=== PATIENT | female | born 1940 | race Caucasian/White ===

== ENCOUNTER 2022-03-09 12:56 | Inpatient (IN) | payer MEDICARE, SELFPAY ==
[2022-03-09] VITALS (9 sets, daily range): BP systolic 153–195; BP diastolic 71–88; PULSE 78–92; RESP 16–18; TEMP 36.6; O2SAT 93–97; BMI 29.1; BMI 31.1
--- NOTE | 2022-03-09 | CRLHL7_ITS ---
For Patients: As a result of the 21st Century Cures Act, medical imaging exams and procedure reports are released immediately into your electronic medical record. You may view this report before your referring provider. If you have questions, please contact your health care provider. INDICATION: Right facial weakness. TECHNIQUE: MRI brain: Multiplanar multisequence MR imaging acquired prior to and following intravenous contrast. MRA head: Kegi-pz-nnsbnh imaging acquired. MRA neck: Pgio-mc-osdsnq and postcontrast imaging acquired. COMPARISON: None. FINDINGS: MRI brain: Small focus of diffusion restriction and mild T2 FLAIR hyperintensity within the ventral left hemipons, compatible with acute to early subacute infarction. Mild diffuse cerebral volume loss. No mass effect or midline shift. Patchy T2 FLAIR hyperintensities in the supratentorial white matter and aubrie, typical for moderate chronic microvascular ischemic changes. No pathologic intracranial enhancement. No recent intracranial hemorrhage or pathologic extra-axial fluid collection. The major arterial flow voids of the skullbase are preserved. Thinning of the ocular lenses. Mild paranasal sinus mucosal thickening. Trace mastoid effusions. MRA head: Artifact degrades image quality. The visualized internal carotid, middle cerebral, and anterior cerebral arteries are patent. Suggested stenosis of the right greater than left supraclinoid internal carotid arteries. The vertebral, basilar, and posterior cerebral arteries are patent. Suggested stenosis of the right greater than left posterior cerebral artery proximal P2 segments. No intracranial aneurysm or vascular malformation. MRA neck: The brachiocephalic trunk and subclavian arteries are widely patent. The common carotid arteries are widely patent. Mild (less than 50 percent) proximal cervical internal carotid artery stenoses. The left vertebral artery is dominant. The vertebral arteries are widely patent. IMPRESSION: MRI brain: 1. Small acute to early subacute infarction within the ventral left hemipons. 2. Moderate chronic microvascular changes. 3. Mild diffuse cerebral volume loss. MRA head/neck: 1. MRA head degraded by artifact. Suggested stenosis of the right greater than left supraclinoid internal carotid arteries and posterior cerebral artery proximal P2 segments. 2. Mild (less than 50 percent) proximal cervical internal carotid artery stenoses. Dictated by El Canseco MD @ 03/09/2022 6:09:42 PM (Electronically Signed)
--- NOTE | 2022-03-09 13:35 | MR_ITS ---
Patient: NAN SCHAFER Facility:?[facility] Patient ID:?[id number] Site Patient ID:?[id number]. Site :?[id number] Study:?MRI-Head W/ and W/O Cont 20 CC DOTAREM-03/09/2022 5:45:12 PM Ordering Physician:Kael Levine Final Report: INDICATION: Right facial weakness. TECHNIQUE: MRI brain: Multiplanar multisequence MR imaging acquired prior to and following intravenous contrast. MRA head: Vmlc-uc-rojmbn imaging acquired. MRA neck: Oelm-db-mgstic and postcontrast imaging acquired. COMPARISON: None. FINDINGS: MRI brain: Small focus of diffusion restriction and mild T2 FLAIR hyperintensity within the ventral left hemipons, compatible with acute to early subacute infarction. Mild diffuse cerebral volume loss. No mass effect or midline shift. Patchy T2 FLAIR hyperintensities in the supratentorial white matter and aubrie, typical for moderate chronic microvascular ischemic changes. No pathologic intracranial enhancement. No recent intracranial hemorrhage or pathologic extra-axial fluid collection. The major arterial flow voids of the skullbase are preserved. Thinning of the ocular lenses. Mild paranasal sinus mucosal thickening. Trace mastoid effusions. MRA head: Artifact degrades image quality. The visualized internal carotid, middle cerebral, and anterior cerebral arteries are patent. Suggested stenosis of the right greater than left supraclinoid internal carotid arteries. The vertebral, basilar, and posterior cerebral arteries are patent. Suggested stenosis of the right greater than left posterior cerebral artery proximal P2 segments. No intracranial aneurysm or vascular malformation. MRA neck: The brachiocephalic trunk and subclavian arteries are widely patent. The common carotid arteries are widely patent. Mild (less than 50 percent) proximal cervical internal carotid artery stenoses. The left vertebral artery is dominant. The vertebral arteries are widely patent. IMPRESSION: MRI brain: 1. Small acute to early subacute infarction within the ventral left hemipons. 2. Moderate chronic microvascular changes. 3. Mild diffuse cerebral volume loss. MRA head/neck: 1. MRA head degraded by artifact. Suggested stenosis of the right greater than left supraclinoid internal carotid arteries and posterior cerebral artery proximal P2 segments. 2. Mild (less than 50 percent) proximal cervical internal carotid artery stenoses. Dictated by El Canseco MD @ 03/09/2022 6:09:00 PM Signed by:?El Canseco MD @03/09/2022 6:09:00 PM (Electronic Signature)
--- NOTE | 2022-03-09 13:39 | ED_ITS ---
HPI - General Adult General Date Seen: 03/09/22 Chief complaint: Neuro Symptoms/Altered Deficit Stated complaint: Mini Strokes Time Seen by Provider: 03/09/22 12:56 Source: patient, family (Daughter is present) and RN notes reviewed Mode of arrival: ambulatory Limitations: no limitations History of Present Illness HPI narrative: Patient is a 81-year-old female brought in by her daughter from home where she resides independently with concern of possible strokes. Her daughter is an operations plant attendant and had been out of the country. She came back yesterday in noted her mom had some right facial drooping. Patient notes it has been present maybe 2-3 weeks. While her daughter was gone, she does admit that she called her months and her mom speech does sound a little slurred. She thought perhaps she was just tired. She did help her mom a shower this morning and right in the shower she noted worsening of the facial drooping in her speech. It seems to be better now. She notes her hands sometimes feels weak, has not dropped anything. She admits that she needs assistance to get around the house. She has noted increased blurry vision but seems to be both eyes, no double vision. She complains of right ear tinnitus greater than left ear tinnitus but her daughter notes that she has seen ENT and this is not a new problem. Denies any chest pain, no palpitations or irregular heartbeat. Patient is noted to be diabetic, have hypertension. Her daughter notes that they feel it is time that she has to be out of her independent living. Related Data Home Medications Medication Instructions Recorded Confirmed glimepiride 2 mg tablet mg 03/09/22 lisinopril 10 mg tablet 10 mg PO DAILY 03/09/22 03/09/22 tramadol 50 mg tablet mg 03/09/22 Allergies Allergy/AdvReac Type Severity Reaction Status Date / Time metformin AdvReac Severe Vomiting Verified 12/14/21 12:12 ivp dye Allergy Severe Confusion Uncoded 12/14/21 12:12 novacaine Allergy Unknown Uncoded 12/22/21 14:34 Review of Systems Status of ROS: Reports: 10 or more systems reviewed and unremarkable except as noted in History and below PFSH PFSH Social History Smoking Status: Never smoker Do you use any of these nicotine containing products: None How often do you have a drink containing alcohol: never How often do you have six or more drinks on one occasion: Never AUDIT-C Alcohol total score: 0 Non-prescribed substance use: denies use Exam Const: Vital Signs, click to edit/add: Vital Signs - 24 hr 03/09/22 13:14 03/09/22 13:36 03/09/22 15:13 Temperature 97.8 F Pulse Rate [Pulse Oximeter] 83 84 Respiratory Rate 16 18 Blood Pressure [Ri ght Upper Arm] 195/81 H 187/88 H Pulse Oximetry 93 94 97 Oxygen Delivery Me thod Room Air 03/09/22 14:50 03/09/22 18:29 Temperature Pulse Rate [Pulse Oximeter] 92 Respiratory Rate 18 Blood Pressure [Ri ght Upper Arm] 187/88 H 176/71 H Pulse Oximetry 93 Oxygen Delivery Me thod Room Air Documenting provider has reviewed patient's vital signs: yes Common no rmals: no apparent distress, average body habitus, oriented x3, no limitations, healthy appearing and alert General appearance: cooperative and comfortable HENMT: Common normals: normocephalic, head/scalp atraumatic, hearing grossly normal bilaterally, external ears normal, EAC's normal, TM's normal bilaterally, external nose normal, nasal mucous membranes and turbinates normal, moist oral mucous membranes and oropharynx normal (Tongue protrusion shows mild left deviation) Head and scalp: normocephalic and atraumatic Nose: external nose normal and nasal mucous membranes and turbinates normal External ear: external ears normal External auditory canal: EAC's normal Tympanic membrane: TM's normal bilaterally Other: Note rest teen right corner of her mouth with facial drooping. She does get some upward movement with smile but still does not have as much upward movement on the right side as the left. Both patient and her daughter feel that her smile is affected on the right. Can close eyes completely and raise eyebrows on the right side. Eye: Common normals: PERRL, EOMs intact bilaterally (No nystagmus or dysconjugate gaze noted), conjunctivae normal and no scleral icterus Conjunctiva: conjunctiva(e) normal Pupil: PERRL Neck & C-Spine: Common normals: full ROM, no lymphadenopathy, supple, no meningeal signs, no JVD and thyroid normal Thyroid: thyroid normal Resp: Common normals: normal respiratory effort, no retractions, no use of accessory muscles and clear to auscultation bilaterally Auscultation: clear to auscultation bilaterally Cardio: Common normals: no JVD, regular rate, regular rhythm, S1 normal heart sound, S2 normal heart sound, no gallops, no clicks and no murmurs Rate: regular rate Rhythm: regular rhythm Heart sounds: S1 normal and S2 normal GI: Common normals: Normal to inspection, nondistended, normoactive bowel sounds present, soft to palpation, non-tender, no hepatosplenomegaly and no masses Palpation: soft and no hepatosplenomegaly Neuro: Ana Laura Coma Scale: document GCS findings Ana Laura coma scale eye opening: Spontaneous (4) [place] coma scale verbal response: Orientated (5) Ana Laura coma scale motor response: Obey commands (6) Ana Laura coma scale total score: 15 Common normals: oriented x3, moves all extremities, no focal motor deficits and no sensory deficits noted Sensorium/orientation: alert Meningeal signs: no meningeal signs Other: Diminished motor on the right facial exam as noted above. On her strength testing of her upper extremities and lower extremities, no focal deficit noted. She really does have 5/5 strength preserved in her upper extremities, hand through shoulder. Normal light touch sensation, normal rapid alternating finger movements. I note no baseline tremors. Course Course Hospital Course: Detector radiologist about imaging. He felt it would be appropriate to proceed with MR stroke protocol of her brain and carotids/[place]. We will have her on cardiac monitoring, pulse oximetry obtain EKG and baseline labs. She most definitely appears to have had a stroke clinically based on her facial symptoms but they give a history of some interval worsening at times. This could be some water shed issues, progressive worsening. She is hypertensive. Right now her daughter feels that she is better than she was this morning when she saw the interval worsening. Reevaluation(s) Reevaluation #1: Patient stable and awaiting MRI. Reviewed normal labs. Daughter doesn't feel that she is safe at home, does live with her . Daughter feels that cannot safely care for her either, also worried about him staying home. Time: 15:19 Reevaluation #2: Patient exam remains stable. Reviewed with patient and daughter that she indeed shows a stroke on mri. Patient is repetitive, seems to have difficulty grasping situation, really understandably fixed on going home. Have paged stroke neuro [facility] to review the case. Will update our hospitalist Dr. Enciso. Time: 18:27 Consultations Consultation #1: Did finally speak with Dr. Painting stroke neurologist at [facility]. We had paged at 6:30 a.m., re-paged at 7:30 p.m.. He unfortunately was incredibly busy with other emergencies. We reviewed her case. He thought that this was likely small-vessel disease but possibly could be coming from the posterior circulation. He recommended aspirin and Plavix for dual antiplatelet coverage for 1 month, then aspirin after. Allow permissive hypertension, echo, cholesterol control. There would be no emergent treatment for this. She can have stuttering symptoms with the stroke, it is not uncommon. Did subsequently talk to our hospitalist Dr. Enciso. He will place on observation. They can do PT and OT assessment tomorrow, order echo, deal with cholesterol management. I have ordered 81 mg aspirin and 75 mg Plavix. They understand that we cannot guarantee coverage for rehab stay at this time, our manager social services certainly can help work with them. At this time would appear she qualifies for observation stay in talking to the hospitalists but ultimately will defer to them and their assessment. Time: 19:34 Vital Signs Vital signs: Initial Vital Signs Temperature 97.8 F 03/09/22 13:14 Temperature Source Temporal Artery Scan 03/09/22 13:14 Pulse Rate 83 03/09/22 13:14 Respiratory Rate 16 03/09/22 13:14 Blood Pressure 195/81 H 03/09/22 13:14 Blood Pressure Mean 119 03/09/22 13:14 Pulse Oximetry 93 03/09/22 13:14 Oxygen Delivery Method 03/09/22 13:14 Vital Signs Temperature 97.8 F 03/09/22 13:14 Pulse Rate 83 03/09/22 13:14 Respiratory Rate 16 03/09/22 13:14 Blood Pressure 195/81 H 03/09/22 13:14 Pulse Oximetry 93 03/09/22 13:14 Oxygen Delivery Method 03/09/22 13:14 Temperature 97.8 F 03/09/22 13:14 Pulse Rate 92 03/09/22 18:29 Respiratory Rate 18 03/09/22 18:29 Blood Pressure 176/71 H 09/22/22 18:29 Pulse Oximetry 93 03/09/22 18:29 Oxygen Delivery Method 03/09/22 18:29 Medical Decision Making Lab Data Lab results reviewed: Yes I reviewed the patient's lab results Labs: Lab Results 03/09/22 03/09/22 03/09/22 Range/Units 13:45 13:45 13:45 WBC 6.85 (4.50-11.00) K/uL RBC 4.34 (4.00-5.20) m/uL Hgb 12.3 (12.0-16.0) gm/dL Hct 38.3 (33.0-51.0) % MCV 88 (80-100) fL MCH 28 (26-34) pg MCHC 32 (32-36) gm/dL RDW Coeff of Bertin 11.7 (11.5-15.5) % Plt Count 227 (140-440) K/uL Neut % (Auto) 69.0 (42.0-72.0) % Lymph % (Auto) 22.8 (20-44) % [place] % (Auto) 4.5 (0.0-11.0) % Eos % (Auto) 3.4 (0.0-7.0) % Baso % (Auto) 0.3 (0.0-3.0) % Neut # (Auto) 4.73 (1.7-7.0) K/uL Lymph # (Auto) 1.56 (0.90-2.90) K/uL [place] # (Auto) 0.30 (0.00-0.90) K/UL Eos # (Auto) 0.23 (0.00-0.50) K/uL Baso # (Auto) 0.02 (0.00-0.30) K/uL Abs Immat Gran (auto) 0.00 (0.00-0.30) K/uL Sodium 138 (135-149) mmol/L Potassium 4.8 (3.6-5.1) mmol/L Chloride 101 (96-114) mmol/L Carbon Dioxide 30 (20-32) mmol/L BUN 33 H (7-30) mg/dL Creatinine 0.7 (0.5-1.5) mg/dL Estimated Creat Clear 41.05 Estimated GFR 88 ml/min Glucose 135 H (60-115) mg/dL Calcium 9.3 (8.4-10.6) mg/dL Total Bilirubin 0.4 (0.1-1.5) mg/dL AST 24 (12-35) U/L ALT 11 (4-35) U/L Alkaline Phosphatase 81 (40-150) U/L C-Reactive Protein < 0.5 L (0.5-1.0) mg/dL Total Protein 7.4 (6.0-8.3) g/dL Albumin 4.2 (3.3-5.0) g/dL SARS-CoV-2 (PCR) Negative SARS-CoV-2 (Negative) Imaging Data MRI - head: Attestation: I have reviewed the pertinent imaging results. Radiologist's impression: Patient: NAN SCHAFER Facility:?[facility] Patient ID:?[id number] Site Patient ID:?[id number]. Site :?[id number] Study:?MRI Head Angio W/O-03/09/2022 5:43:56 PM Ordering Physician:Kael Levine Final Report: INDICATION: Right facial weakness. TECHNIQUE: MRI brain: Multiplanar multisequence MR imaging acquired prior to and following intravenous contrast. MRA head: Vwmm-st-pdzssb imaging acquired. MRA neck: Ocqo-rj-fyrwvd and postcontrast imaging acquired. COMPARISON: None. FINDINGS: MRI brain: Small focus of diffusion restriction and mild T2 FLAIR hyperintensity within the ventral left hemipons, compatible with acute to early subacute infarction. Mild diffuse cerebral volume loss. No mass effect or midline shift. Patchy T2 FLAIR hyperintensities in the supratentorial white matter and aubrie, typical for moderate chronic microvascular ischemic changes. No pathologic intracranial enhancement. No recent intracranial hemorrhage or pathologic extra-axial fluid collection. The major arterial flow voids of the skullbase are preserved. Thinning of the ocular lenses. Mild paranasal sinus mucosal thickening. Trace mastoid effusions. MRA head: Artifact degrades image quality. The visualized internal carotid, middle cerebral, and anterior cerebral arteries are patent. Suggested stenosis of the right greater than left supraclinoid internal carotid arteries. The vertebral, basilar, and posterior cerebral arteries are patent. Suggested stenosis of the right greater than left posterior cerebral artery proximal P2 segments. No intracranial aneurysm or vascular malformation. MRA neck: The brachiocephalic trunk and subclavian arteries are widely patent. The common carotid arteries are widely patent. Mild (less than 50 percent) proximal cervical internal carotid artery stenoses. The left vertebral artery is dominant. The vertebral arteries are widely patent. IMPRESSION: MRI brain: 1. Small acute to early subacute infarction within the ventral left hemipons. 2. Moderate chronic microvascular changes. 3. Mild diffuse cerebral volume loss. MRA head/neck: 1. MRA head degraded by artifact. Suggested stenosis of the right greater than left supraclinoid internal carotid arteries and posterior cerebral artery proximal P2 segments. 2. Mild (less than 50 percent) proximal cervical internal carotid artery stenoses. Dictated by El Canseco MD @ 03/09/2022 6:09:22 PM (Electronic Signature) ECG Data Attestation: I personally reviewed and interpreted this ECG as follows: (Sinus rhythm, 84 beats per minute, QT corrected 472 milliseconds., right bundle branch block., low voltage V3 through V6.) Prior ECG tracings: not available for review Critical Care Time Critical Care Time Critical Care Time: No Discharge Plan Discharge Clinical Impression: Acute ischemic stroke Patient Disposition: Admitted As Inpatient Condition: Stable Prescriptions: No Action tramadol 50 mg tablet Label Comments: Take 1 tablet by mouth four times a day. lisinopril 10 mg tablet 10 mg PO DAILY Label Comments: TAKE 1 TABLET (10 MG) BY MOUTH DAILY glimepiride 2 mg tablet Label Comments: TAKE 1 TABLET BY MOUTH DAILY. Follow Up/Referrals: Beck Ferguson MD [Primary Care Provider] -
[2022-03-09 14:11] LABS: Basophils Absolute Auto 0.02 K/uL (0.00-0.30); Basophils Percent Auto 0.3 % (0.0-3.0); Eosinophils Absolute Auto 0.23 K/uL (0.00-0.50); Eosinophils Percent Auto 3.4 % (0.0-7.0); Hematocrit 38.3 % (33.0-51.0); Hemoglobin* 12.3 gm/dL (12.0-16.0); Lymphocytes Absolute Auto 1.56 K/uL (0.90-2.90); Lymphocytes Percent Auto 22.8 % (20-44); Mean Corpuscular HGB Conc 32 gm/dL (32-36); Mean Corpuscular Hemoglobin 28 pg (26-34); Mean Corpuscular Volume 88 fL (80-100); Monocytes Percent Auto 4.5 % (0.0-11.0); Neutrophils Absolute Auto 4.73 K/uL (1.7-7.0); Platelet Count* 227 K/uL (140-440); RDW Coefficient of Variation % 11.7 % (11.5-15.5); Red Blood Count 4.34 m/uL (4.00-5.20); White Blood Count* 6.85 K/uL (4.50-11.00)
[2022-03-09 14:17] LABS: Slide Review Reflex No
[2022-03-09 14:22] LABS: Albumin* 4.2 g/dL (3.3-5.0); Chloride* 101 mmol/L (96-114); Sodium* 138 mmol/L (135-149)
[2022-03-09 14:23] LABS: Potassium* 4.8 mmol/L (3.6-5.1)
[2022-03-09 14:25] LABS: Alkaline Phosphatase* 81 U/L (40-150); Aspartate Amino Transferase* 24 U/L (12-35); Bilirubin Total* 0.4 mg/dL (0.1-1.5); Carbon Dioxide* 30 mmol/L (20-32); Creatinine* 0.7 mg/dL (0.5-1.5); Est. Creatinine Clearance* 41.05; Estimated Glomerular Filt Rate 88 ml/min; Total Protein* 7.4 g/dL (6.0-8.3)
[2022-03-09 14:26] LABS: Alanine Aminotransferase* 11 U/L (4-35); Blood Urea Nitrogen* 33 mg/dL (7-30); Calcium* 9.3 mg/dL (8.4-10.6); Glucose* 135 mg/dL (60-115)
[2022-03-09 14:28] LABS: C Reactive Protein* < 0.5 mg/dL (0.5-1.0)
[2022-03-09 14:41] LABS: SARS PCR* Negative SARS-CoV-2 (Negative)
--- NOTE | 2022-03-09 18:59 | ED.NURSE ---
Offer of food and drink were made to patient after MD Ok'd it. Daughter reports she will leave to get food and come back.
[2022-03-09] MEDS: CLOPIDOGREL 75 MG TABLET PO (20:17)
[2022-03-09] MEDS: ASPIRIN 81 MG TABLET EC PO (21:35)
--- NOTE | 2022-03-09 21:36 | PC.NURSE ---
Received pt. from ED accompanied by ADMINISTRATION INTERN, pt.'s daughter and granddaughter. Pt. AOx3, VSS on RA, able to ambulate A1/wheelchair to bathroom and bed with gait belt and non-skid socks. Pt.'s daughter, Deb, informed writer producer that pt. takes unknown doses of prescribed tramadol daily, and has been taking for years. Dr. Enciso and charge master coordinator Kristen notified of information, and Dr. Enciso stated he will order medications appropriately for pt. Daughter stated she is taking pt.'s purse and belongings home which includes pt.'s home Tramadol doses. Pt. given aspirin 81mg dose, not previously given in ER due to unavailability of med in ER per ADMINISTRATION INTERN. Pt. had 1 BM upon arrival to unit, awaiting further orders from
--- NOTE | 2022-03-09 21:53 | P.IMHP_ITS ---
Hospitalist- H&P: HPI History of Present Illness Time Seen by Provider: 20:00 Date Seen: 03/09/22 Chief complaint: Mini Strokes Narrative: Sheela Kamara is a 81 year old female with hypertension and diabetes who presents with right facial droop and slurring of speech. Patient is unsure of the duration of symptoms. There is a question of cognitive impairment and her daughter believes that she was normal 4 days ago and has had a somewhat stuttering course of symptoms in the last day. Daughter observed the speech impairment with slurring of the speech this morning and right facial droop. Patient also notes She has some weakness or apraxia involving her right hand. She is right-handed. She has not had a fall or head injury. No previous history of stroke. She denies any new visual disturbance. Specifically has no diplopia or visual field neglect. She has had diminished vision over the past few years but does not remember what her eye doctor told her was the cause. She has chronic urinary incontinence. She has chronic immobility with progressive loss of a ability to ambulate. She has a walker at home but she does not like using it. When she goes out of the home she uses a wheelchair. Around the home she stands and transfers with the assistance of her or her daughter or holding onto the wall and furniture. Review of Systems Narrative: Patient reports no history of previous stroke. She has had no recent illness including cough, cold, shortness of breath, chest pain, abdominal pain, nausea, vomiting, diarrhea, blood in her stool or melena. She does have some tendency towards constipation. She has chronic urinary incontinence. No history of bleeding or clotting problems. Complete review of systems otherwise unremarkable [facility] Medical History (Updated 03/09/22 @ 22:01 by Kodak Enciso MD) Acute ischemic stroke Acute sinusitis Ankle fracture Chronic right ear pain Cognitive impairment Decreased visual acuity Diabetes mellitus Diabetic foot ulcer Hypertension Immobility Opioid abuse Tinnitus Urinary incontinence Surgical History History of cataract surgery Family History (Updated 03/09/22 @ 22:03 by Kodak Enciso MD) Son Coronary artery disease Social History (Updated 03/09/22 @ 22:03 by Kodak Enciso MD) Narrative: She lives with her who has significant health problems as well. Family has been talking with them about moving to a higher level of care. Her healthcare power of employment attorney is her daughter Deb or her son Stevie. Code status is DNR. 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 She has 2 sons who , 1 in his 50s of coronary artery disease and the other of muscular dystrophy in his teens Smoking Status: Never smoker Do you use any of these nicotine containing products: None How often do you have a drink containing alcohol: never How often do you have six or more drinks on one occasion: Never AUDIT-C Alcohol total score: 0 Non-prescribed substance use: denies use Meds Home Medications and Allergies Home Medications Medication Instructions Recorded Confirmed Type glimepiride 2 mg tablet 2 mg PO DAILY 03/09/22 03/09/22 History lisinopril 10 mg tablet 10 mg PO DAILY 03/09/22 03/09/22 History tramadol 50 mg tablet 50 mg PO .Q.i.d. PRN pain 03/09/22 03/09/22 History Allergies Allergy/AdvReac Type Severity Reaction Status Date / Time metformin AdvReac Severe Vomiting Verified 12/14/21 12:12 ivp dye Allergy Severe Confusion Uncoded 12/14/21 12:12 novacaine Allergy Unknown Uncoded 12/22/21 14:34 Exam Narrative: Exam Narrative: She is alert and appears in no distress. She gives her own history with relatively fluent speech. She has poor recall of multiple past medical history of events, medications, recent symptoms. History is primarily obtained from daughter and the medical record. Head is without evidence of trauma. She has obvious facial asymmetry with a facial droop on the right. This is not involve the forehead. Eyes are normal. Eyelid strength is normal. Extraocular movements are full. She has no nystagmus. There is no diplopia. Pupils are equal round reactive to light. Visual carreon are intact. Tongue is midline. Pinnas external canals and TMs are normal. Sensation in her face is intact without neglect. Palpation over her TMJs without significant tenderness. She has fair mobility in her jaw bilaterally. Neck is supple without mass or adenopathy. Respirations are clear to auscultation. Breathing is unlabored. Cardiovascular: S1, S2, regular rate and rhythm. No murmur gallop or rub. Abd omen: Bowel sounds active. Abdomen is soft without tenderness or mass. External genitalia are normal. Extremities with 1+ edema in both ankles. She has somewhat diminished but intact pedal pulses. She has equal strength in all 4 extremities. Legs are bilaterally mildly weak but without focal weakness in hip flexion, knee flexion and extension, ankle dorsiflexion and plantar flexion, great toe dorsiflexion. She has diminished sensation in her feet bilaterally. [id number] is accurate. Upper extremity strength is symmetric in shoulder flexion and extension elbow flexion and extension, wrist flexion and extension, finger extension and brick wheeler strength. Const: Vital Signs, click to edit/add: Vital Signs - 24 hr 03/09/22 13:14 03/09/22 13:36 03/09/22 15:13 Temperature 97.8 F Pulse Rate [Pulse Oximeter] 83 84 Respiratory Rate 16 18 Blood Pressure [Ri ght Upper Arm] 195/81 H 187/88 H Pulse Oximetry 93 94 97 Oxygen Delivery Me thod Room Air 03/09/22 14:50 03/09/22 18:29 Temperature Pulse Rate [Pulse Oximeter] 92 Respiratory Rate 18 Blood Pressure [Ri ght Upper Arm] 187/88 H 176/71 H Pulse Oximetry 93 Oxygen Delivery Me thod Room Air Documenting provider has reviewed patient's vital signs: yes Hospitalist - H&P: Result Labs Labs: Short CBC 03/09/22 Range/Units 13:45 WBC 6.85 (4.50-11.00) K/uL Hgb 12.3 (12.0-16.0) gm/dL Hct 38.3 (33.0-51.0) % Plt Count 227 (140-440) K/uL BMP 03/09/22 13:45 Sodium 138 Potassium 4.8 Chloride 101 Carbon Dioxide 30 BUN 33 H Creatinine 0.7 Glucose 135 H Calcium 9.3 Liver Function 03/09/22 Range/Units 13:45 Total Bilirubin 0.4 (0.1-1.5) mg/dL AST 24 (12-35) U/L ALT 11 (4-35) U/L Alkaline Phosphatase 81 (40-150) U/L Albumin 4.2 (3.3-5.0) g/dL Imaging MR Brain: Radiologist's impression: [address] [address] Diagnostic Imaging Report Patient: Sheela Kamara MR#: [id number] : 1940 Acct:[id number] Loc: ED Service Date: 03/09/[address]: Ordering Physician: Julianna Ibrahim M.D. Date of Service: 03/09/22 Procedure(s): MR angio neck wo/w con Accession Number(s): [id number] cc: Beck Ferguson M.D.; Julianna Ibrahim M.D.~ For Patients:? As a result of the Cures Act, medical imaging exams and procedure reports are released immediately into your electronic medical record.? You may view this report before your referring provider.? If you have questions, please contact your health care provider. INDICATION: Right facial weakness. TECHNIQUE: MRI brain: Multiplanar multisequence MR imaging acquired prior to and following intravenous contrast. MRA head: Lypd-hi-poneni imaging acquired. MRA neck: Tdia-rp-ralhom and postcontrast imaging acquired. COMPARISON: None. FINDINGS: MRI brain: Small focus of diffusion restriction and mild T2 FLAIR hyperintensity within the ventral left hemipons, compatible with acute to early subacute infarction. Mild diffuse cerebral volume loss. No mass effect or midline shift. Patchy T2 FLAIR hyperintensities in the supratentorial white matter and aubrie, typical for moderate chronic microvascular ischemic changes. No pathologic intracranial enhancement. No recent intracranial hemorrhage or pathologic extra-axial fluid collection. The major arterial flow voids of the skullbase are preserved. Thinning of the ocular lenses. Mild paranasal sinus mucosal thickening. Trace mastoid effusions. MRA head: Artifact degrades image quality. The visualized internal carotid, middle cerebral, and anterior cerebral arteries are patent. Suggested stenosis of the right greater than left supraclinoid internal carotid arteries. The vertebral, basilar, and posterior cerebral arteries are patent. Suggested stenosis of the right greater than left posterior cerebral artery proximal P2 segments. No intracranial aneurysm or vascular malformation. MRA neck: The brachiocephalic trunk and subclavian arteries are widely patent. The common carotid arteries are widely patent. Mild (less than 50 percent) proximal cervical internal carotid artery stenoses. The left vertebral artery is dominant. The vertebral arteries are widely patent. IMPRESSION: MRI brain: 1. Small acute to early subacute infarction within the ventral left hemipons. 2. Moderate chronic microvascular changes. 3. Mild diffuse cerebral volume loss. MRA head/neck: 1. MRA head degraded by artifact. Suggested stenosis of the right greater than left supraclinoid internal carotid arteries and posterior cerebral artery proximal P2 segments. 2. Mild (less than 50 percent) proximal cervical internal carotid artery stenoses. Dictated by El Canseco MD @ 03/09/2022 6:09:42 PM Assessment and Plan Assessment and plan (1) Acute ischemic stroke: Problem comment: MRI 03/09/2022 shows infarct in the ventral left hemipons. Status: Acute (2) Cognitive impairment: Status: Acute (3) Opioid abuse: Problem comment: According to daughter and granddaughter the patient has been using excessive tramadol for some time Status: Acute (4) Decreased visual acuity: Problem comment: History of chronic decreased vision, possibly acutely worse in the past couple days. Patient unaware of the cause. Previous cataract surgery. Status: Acute (5) Urinary incontinence: Status: Acute (6) Immobility: Problem comment: Minimal ambulation with assist of 1 or holding onto nash and furniture. Status: Acute (7) Tinnitus: Problem comment: Right greater than left Status: Acute (8) Hypertension: Status: Acute (9) Diabetes mellitus: Problem comment: Historically poor control Status: Acute Plan Patient has in the last couple days had an acute ischemic stroke involving the left aubrie. Immediately apparent neurologic deficits include slurring of the speech which is improved and right facial droop which persists. She has chronic neurologic deficits which may also have gotten worse including weakness, difficulty with ambulation, decreased vision. She will be admitted for evaluation of these acute and chronic deficits. Based on the difficulty she was having at home prior to her stroke I am concerned that she may not be safe to return home to live independently with her . I discussed this with the patient and her daughter and granddaughter today. They have already been thinking about this as well. Will also begin to address her diabetes which has not been well controlled. She does not monitor her blood sugar at home. She also has hypertension and has been off of her lisinopril except she has taken at the last 2 days. Will continue her lisinopril as her blood pressure is still moderately high. Since her stroke is possibly a couple days old and she has already to taken her blood pressure medicine I think it would be safe to continue it with current elevated blood pressures. Initiate dual antiplatelet therapy with aspirin and clopidogrel for 1 month and statin therapy. Cardiac monitoring for cardiac dysrhythmia and echocardiogram. DVT prophylaxis with enoxaparin. Total time spent today is 80 minutes, 50 minutes in coordination of care and discussing with patient and family and other providers ongoing management of stroke.
[2022-03-09] MEDS: TRAMADOL HCL 50 MG TABLET PO (22:27)
[2022-03-09] MEDS: ENOXAPARIN 40 MG/0.4 ML INJ SUBCUT (22:46)
--- NOTE | 2022-03-09 23:36 | PC.NURSE ---
Notified Dr. Enciso of pt.'s 2300 BP 194/84, repeat pressure 199/90, and manual BP reading of 190/79. stated OK with elevated BP's for now, will resume pt.'s BP medication in AM. Will continue to monitor pt.
[2022-03-10 03:00] VITALS: BP 148/62; PULSE 81; RESP 18; TEMP 36.7; O2SAT 92
[2022-03-10 03:09] LABS: Appearance Urine Clear (Clear); Bilirubin Urine Negative (Negative); Blood Urine 1+ (Negative); Color Urine Yellow (Yellow); Glucose Urine Negative (Negative); Ketones Urine Negative (Negative); Leukocyte Esterase Urine Negative (Negative); Nitrite Urine Negative (Negative); Protein Urine 1+ (Negative); Urobilinogen Urine 0.2 (0.2-1.0); pH Urine 5.5 (5.0-8.5)
[2022-03-10 03:35] LABS: WBC Urine 0-2 (0-5)
[2022-03-10] MEDS: TRAMADOL HCL 50 MG TABLET PO ×5 (06:19→21:52)
--- NOTE | 2022-03-10 06:25 | PC.NURSE ---
Shift 7p-7a: Pt. AO, following commands, VSS on RA. Pt.'s BP systolic 190's last night during [address] Enciso stated OK for permissive HTN at this time, will restart pt.'s Lisinopril in AM. Pt. has visible RT facial droop, BUE/BLE strengths equal and strengths 4/5, slightly more weak on RT side than LT, but unchanged status since admission yesterday. Pt.'s speech is slightly slurred but otherwise coherent and responds to questions appropriately. Pt. does take time to find the right words when responding. Pt. given Tramadol PRN for pain/dependency management. UA sent into lab, pt. is voiding w/o difficulty with A1/wheelchair and gait belt. Tele monitoring in place, shows NSR. Plan for PT/OT and Whizzer evaluation today, ECHO ordered for pt.
[2022-03-10 06:40] LABS: Basophils Absolute Auto 0.03 K/uL (0.00-0.30); Basophils Percent Auto 0.5 % (0.0-3.0); Eosinophils Absolute Auto 0.21 K/uL (0.00-0.50); Eosinophils Percent Auto 3.4 % (0.0-7.0); Hemoglobin* 11.2 gm/dL (12.0-16.0); Lymphocytes Absolute Auto 2.08 K/uL (0.90-2.90); Lymphocytes Percent Auto 33.8 % (20-44); Mean Corpuscular HGB Conc 33 gm/dL (32-36); Mean Corpuscular Hemoglobin 29 pg (26-34); Mean Corpuscular Volume 87 fL (80-100); Monocytes Percent Auto 6.7 % (0.0-11.0); Neutrophils Absolute Auto 3.43 K/uL (1.7-7.0); Neutrophils Percent Auto 55.6 % (42.0-72.0); Platelet Count* 201 K/uL (140-440); RDW Coefficient of Variation % 11.8 % (11.5-15.5); White Blood Count* 6.16 K/uL (4.50-11.00)
[2022-03-10 06:43] LABS: Slide Review Reflex No
[2022-03-10 06:55] LABS: Hemoglobin A1C* 7.18 % (0-5.6)
[2022-03-10 06:57] LABS: Cholesterol* 248 mg/dL (90-199)
[2022-03-10 06:58] LABS: HDL Cholesterol* 46 mg/dL (>=50); LDL Cholesterol Calculated 180 mg/dL (<100); Triglycerides* 111 mg/dL (40-149)
[2022-03-10 07:00] VITALS: BP 154/68; PULSE 73; PULSE 79; RESP 18; TEMP 36.7; O2SAT 96
[2022-03-10] MEDS: GLIMEPIRIDE 1 MG TABLET 2 MG PO (08:21)
[2022-03-10] MEDS: lisinopriL 10 MG TABLET PO (09:03)
[2022-03-10] MEDS: CLOPIDOGREL 75 MG TABLET PO (09:03)
[2022-03-10] MEDS: ROSUVASTATIN CALCIUM 10 MG TABLET PO (09:03)
[2022-03-10] MEDS: ASPIRIN 81 MG TABLET EC PO (09:03)
[2022-03-10 11:00] VITALS: BP 185/78; PULSE 73; RESP 18; TEMP 36.8; O2SAT 96
--- NOTE | 2022-03-10 12:51 | SLP.EVAL ---
VALVE SEATER OPERATOR Beverly Paul Start: 03/10/22 12:27 Freq: Status: Active Protocol: Document 03/10/22 12:27 HUI (Rec: 03/10/22 12:49 MJ [id number]) E-signed By Iliana Jha MA, [facility], VALVE SEATER OPERATOR VALVE SEATER OPERATOR System Review History & Reason For Referral Type of Speech Evaluation Dysphagia Evaluation Rehabilitation Order Evaluation and Treat Date of Order 03/09/22 Reason for Referral Left aubrie CVA, right facial droop and slurred speech Onset Date Of Patient's Problem 03/09/22 Medical Diagnosis Left aubrie CVA Treatment Diagnosis Dysphagia. Dysarthria. Pertinent Medical History DM. HTN. Opioid Abuse. Complication/Precautions/ Right weakness Contraindication Comments Pain Pain Location & Comments Did not state she had any pain Hearing Information Hearing Status Tinnitus bothersome to patient Vision Information Vision Status Not assessed Patient Orientation Orientation & Mental Status Alert and very pleasant. Oriented to place, situation and recent events VALVE SEATER OPERATOR Initial Assessment/POC Subjective Information Subjective/Pain Comment Pleasant and in good spirits. Very talkative. Caregiver's Name Daughter Deb and son Stevie present and supportive Assessment & Impression Rehabilitation Potential Comments Good Assessment/Impression CLINICAL SWALLOW EVALUATION: RN reported no concerns. Patient reported she has been biting her right cheek on the inside, and requested something to put on it - addressed by nursing and daughter. ORAL MOTOR EXAM: Right labial weakness, droop at rest. Moderately reduced range of motion with lip retraction (smile) on right. VALVE SEATER OPERATOR recommended alternating pucker/retract for labial exercise. Lingual strength/ROM appears WNL. PO TRIALS: THIN LIQUIDS VIA SPOON, CUP AND STRAW: WNL. PUREE SOLIDS: WNL SOFT SOLIDS: WNL MIXED CONSISTENCY: Mild labial spillage on right of liquid. Otherwise, WFL CRACKER: Fed self, took small bites. No difficulties ASSESSMENT: Patient tolerated all liquid and solid textures without signs of difficulty or aspiration. VALVE SEATER OPERATOR checked for pocketed foods in right cheek after solids, and it was clear . VALVE SEATER OPERATOR did advise she choose softer, easy to chew foods until she stops biting her right cheek. Also encouraged her to check for pocketed foods with her tongue or finger after eating, though she did not have any issues with pocketing at the time of this assessment. Minimal-mild dysarthria due to labial weakness. 100% intelligible. Cognitive linguistic skills adequate for conversation today, though patient did report she feels her speech is a little guarded in the mornings since stroke symptoms started a couple days ago. RECOMMEND: Continued Regular Diet, Any liquids. Oral motor exercises (simple) for right facial droop - verbal and written instructions provided today. VALVE SEATER OPERATOR will follow up on Sunday to assess high-level cognitive linguistic skills and initiate treatment for dysarthria. Will follow up on diet tolerance at that time too. If patient discharges over the weekend, further speech is recommended at discharge facility, or outpatient if she goes home. Functional Limitations & Outcome/Goals Goals/Functional Outcomes 1) Patient will tolerate least restrictive diet with no signs of difficulty or aspiration. 2) Patient will participate in high-level cognitive linguistic assessment tasks. Further goals pending results. 3) Patient will complete simple oral motor exercises with 90% accuracy. 4) Patient will utilize strategies to complete simple speech tasks with 80% articulatory precision. Intervention Plan & Frequency Frequency 5x Per Week Frequency/Duration Five days per week for length of stay Discharge Plan Patient Will be Discharged from Therapy Completion of LTG(s) Therapist Signature & License # I Certify That Therapy Services Provided, Therapy Plan Established Therapist Signature & License Number Iliana Jha [facility]-VALVE SEATER OPERATOR # [id number] Physician Signature Signature of Physician Indicates Treatment Plan,Certification Plan,Medically Needed Services Physician Signature & Date Required Please Sign/Date Here Dysphagia Education Topics Education Topics Teaching Recipient Patient,Family Speech/Language Pathology Billing Units Billing Units Eval Swallow Function 1
--- NOTE | 2022-03-10 14:58 | PM.IMPN1 ---
Progress Note: A&P Assessment and plan (1) Acute ischemic stroke: Problem details: MRI 03/09/2022 shows infarct in the ventral left hemipons. Status: Acute (2) Cognitive impairment: Status: Acute (3) Opioid abuse: Problem details: According to daughter and granddaughter the patient has been using excessive tramadol for some time Status: Acute (4) Decreased visual acuity: Problem details: History of chronic decreased vision, possibly acutely worse in the past couple days. Patient unaware of the cause. Previous cataract surgery. Status: Acute (5) Hypertension: Status: Acute (6) Diabetes mellitus: Problem details: Historically poor control Status: Acute (7) Urinary incontinence: Status: Acute (8) Immobility: Problem details: Minimal ambulation with assist of 1 or holding onto nash and furniture. Status: Acute (9) Tinnitus: Problem details: Right greater than left Status: Acute (10) Diabetic foot ulcer: Problem details: Recently healed Status: Acute Plan 1. Reviewed impression with patient and daughter. 2. Work with physical and occupational therapy plus speech therapy to assess patient's current status and needs. 3. disabilities services officer assisting with discharge disposition planning. At this juncture it appears that patient is not a safe candidate to return home with her . Will likely need at least transitional care services in a fpc facility. 4. Continue with other supportive efforts. 5. Patient and daughter agreeable to above stated plans and recommendations. Time Spent With Patient Total time spent: 40 minutes Subjective Time Seen by Provider: 10:00 Date Seen: 03/10/22 Interval history: 81-year-old woman, right-hand dominant, status post left aubrie stroke. Continues to have right facial drooping, slurred speech, right hand apraxia. From her perception these symptoms continue to wax and wane, but never resolved. Having difficulties feeding herself with her right hand. As I speak with her it is apparent that she has difficulty processing information. She asks me the same question multiple times. Denies headache, diplopia, dysphagia, or other new focal motor deficits. Acknowledges long-standing gait instability. Tells me how she has been responsible for caring for herself in her home because her is not able to help her. Exam Narrative: Exam Narrative: Pleasant, cooperative. Nevertheless anxious. No acute distress. Alert, oriented to self, place, in part to time, in part to situation. She confers with her daughter about certain details that she is uncertain about. Lungs are clear to auscultation. Heart tones with regular rhythm. Abdomen with active bowel sounds, soft, nontender. Even though she is right-hand dominant, not able to hold onto her feeding utensils. Transfers with standby assist. Broad-based gait with use of gait belt, walker, and standby assist. Skin is warm, dry, intact. No petechiae, rashes, or cyanosis. No icterus or jaundice. Const: Vital Signs, click to edit/add: Vital Signs - 24 hr 03/09/22 15:13 03/09/22 18:29 03/09/22 21:45 Temperature 97.9 F Pulse Rate Pulse Rate [Left P ulse Oximeter] Pulse Rate [Pulse Oximeter] 84 92 Respiratory Rate 18 18 18 Blood Pressure [Le ft Arm] 153/71 H Blood Pressure [Ri ght Upper Arm] 187/88 H 176/71 H Pulse Oximetry 97 93 95 [facility] Room Air 03/09/22 22:00 03/09/22 22:00 03/09/22 22:59 Temperature 97.9 F Pulse Rate Pulse Rate [Left P ulse Oximeter] 91 91 Pulse Rate [Pulse Oximeter] Respiratory Rate 18 18 18 Blood Pressure [Le ft Arm] 153/71 H Blood Pressure [Ri ght Upper Arm] Pulse Oximetry 95 95 [facility] Room Air 03/09/22 22:59 03/09/22 23:22 03/10/22 03:00 Temperature 97.9 F 98.1 F Pulse Rate 81 Pulse Rate [Left P ulse Oximeter] 78 81 Pulse Rate [Pulse Oximeter] Respiratory Rate 18 18 Blood Pressure [Le ft Arm] 194/84 H 148/62 H Blood Pressure [Ri ght Upper Arm] Pulse Oximetry 94 92 [facility] Room Air 03/10/22 07:00 03/10/22 07:00 03/10/22 07:00 Temperature 98.1 F Pulse Rate 79 Pulse Rate [Left P ulse Oximeter] 73 73 Pulse Rate [Pulse Oximeter] Respiratory Rate 18 18 Blood Pressure [Le ft Arm] 154/68 H Blood Pressure [Ri ght Upper Arm] Pulse Oximetry 96 [facility] 03/10/22 11:00 Temperature 98.2 F Pulse Rate Pulse Rate [Left P ulse Oximeter] 73 Pulse Rate [Pulse Oximeter] Respiratory Rate 18 Blood Pressure [Le ft Arm] 185/78 H Blood Pressure [Ri ght Upper Arm] Pulse Oximetry 96 Oxygen Delivery Me thod Room Air Documenting provider has reviewed patient's vital signs: yes Labs Labs: Laboratory Results - last 24 hr 03/10/22 03/10/22 03/10/22 03:02 05:47 05:47 WBC 6.16 RBC 3.90 L Hgb 11.2 L Hct 34.0 MCV 87 MCH 29 MCHC 33 RDW Coeff of Bertin 11.8 Plt Count 201 Neut % (Auto) 55.6 Lymph % (Auto) 33.8 [place] % (Auto) 6.7 Eos % (Auto) 3.4 Baso % (Auto) 0.5 Neut # (Auto) 3.43 Lymph # (Auto) 2.08 [place] # (Auto) 0.40 Eos # (Auto) 0.21 Baso # (Auto) 0.03 Abs Immat Gran (auto) 0.00 Hemoglobin A1c Triglycerides 111 Cholesterol 248 H LDL Cholesterol, Calc 180 H HDL Cholesterol 46 L Urine Color Yellow Urine Appearance Clear Urine pH 5.5 Ur Specific [place] 1.020 Urine Protein 1+ A Urine Glucose (UA) Negative Urine Ketones Negative Urine Blood 1+ A Urine Nitrite Negative Urine Bilirubin Negative Urine Urobilinogen 0.2 Ur Leukocyte Esterase Negative Urine RBC 5-10 A Urine WBC 0-2 Ur Squamous Epith Cells None Urine Bacteria None 03/10/22 05:47 WBC RBC Hgb Hct MCV MCH MCHC RDW Coeff of Bertin Plt Count Neut % (Auto) Lymph % (Auto) [place] % (Auto) Eos % (Auto) Baso % (Auto) Neut # (Auto) Lymph # (Auto) [place] # (Auto) Eos # (Auto) Baso # (Auto) Abs Immat Gran (auto) Hemoglobin A1c 7.18 H Triglycerides Cholesterol LDL Cholesterol, Calc HDL Cholesterol Urine Color Urine Appearance Urine pH Ur Specific [place] Urine Protein Urine Glucose (UA) Urine Ketones Urine Blood Urine Nitrite Urine Bilirubin Urine Urobilinogen Ur Leukocyte Esterase Urine RBC Urine WBC Ur Squamous Epith Cells Urine Bacteria Imaging MR Brain: Attestation: I have reviewed the pertinent imaging results. Radiologist's impression: MRI brain: 1. Small acute to early subacute infarction within the ventral left hemipons. 2. Moderate chronic microvascular changes. 3. Mild diffuse cerebral volume loss. MRA head/neck: 1. MRA head degraded by artifact. Suggested stenosis of the right greater than left supraclinoid internal carotid arteries and posterior cerebral artery proximal P2 segments. 2. Mild (less than 50 percent) proximal cervical internal carotid artery stenoses. ECG Attestation: I personally reviewed and interpreted this ECG as follows: Prior ECG tracings: not available for review Interpretation: Normal sinus rhythm, rate 84. Right bundle branch block.
[2022-03-10 15:00] VITALS: BP 164/74; PULSE 76; PULSE 79; RESP 18; TEMP 36.9; O2SAT 95
--- NOTE | 2022-03-10 15:34 | PC.SOCIAL ---
Met with Pt's daughter, Deb Wilson, and pt's son, Stevie Kamara. Discussed pt's placement at SNF for short-term rehab. Family prefers placement in [place] or [place]. Phone call to [facility] in [place]. Spoke to volunteer services coordinatorAnne. Tigre informed that there are open beds. Faxed initial information. Tigre called this worker back and confirmed she received the information and will assess for possible admission. Phone call to [facility] in [place]. Left a voicemail with branch coordinatorFouzia inquiring on bed availability.
--- NOTE | 2022-03-10 17:32 | PC.SOCIAL ---
Discharge plan: Received call from [facility] stating they can accept pt on Sunday at either 11:00 or 1:00 for admission to either a private or a shared room. Facility requested nurse to nurse and discharge orders to be sent Sunday prior to discharge. Called dtr Deb, who is very pleased with this plan. Family will provide transport and are currently planning to pick her up to arrive at [facility] at 11:00 Sunday. agricultural service worker to follow up as needed.
--- NOTE | 2022-03-10 18:36 | PC.NURSE ---
Pt.alert and oriented. Pleasant and follows commands, VSS?on RA. Pt. has visible RT facial droop, BUE/BLE strengths equal and strengths 4/5, Pt. slightly more weak on RT side than LT, but unchanged status since admission. Pt.s dtr was concerned this AM that her mother might have had another stroke, MD notified and stated it is normal for symptoms to seem worse d/t inflammation present after a stroke. Pt.'s speech is slightly slurred but otherwise coherent and responds to questions appropriately. Speech therapy recommends eating softer foods. Pt. given Tramadol PRN for pain/dependency management and can be administered at 9AM, 1300, 1700 and 2100. Pt. was satisfied w/keeping on these times. Pt. is voiding w/o difficulty with A1/walker and gait belt. NSR on tele.
[2022-03-10 19:00] VITALS: BP 146/72; PULSE 82; RESP 18; TEMP 36.6; O2SAT 94
[2022-03-10] MEDS: ENOXAPARIN 40 MG/0.4 ML INJ SUBCUT (21:52)
[2022-03-10 23:00] VITALS: BP 148/66; PULSE 73; RESP 18; TEMP 36.6; O2SAT 94
[2022-03-11 03:00] VITALS: BP 153/70; PULSE 84; RESP 18; TEMP 36.7; O2SAT 93
--- NOTE | 2022-03-11 03:41 | PM.IMPN1 ---
Subjective Date Seen: 03/11/22 Interval history: Ceasar Albertist Cross Cover Note eHospitalist was contacted by nursing staff with concern of patient with worsening of her neurologic symptoms. Per bedside nurses report the patient's neurologic status was improving with improvement in right facial droop, with patient having the ability to ambulate using a rolling walker and 1 assist. The bedside nurse reports that the patient's right upper and right lower extremity strength was about 4/5. Around 1 AM the patient was noted to have more drifting of her right arm but this was assessed and the strength seemed okay. Prior to my evaluation the patient then developed worsening right-sided facial droop and weakness on her right side. [Exam (performed via interactive video with assistance of bedside nurse): General: Alert, cooperative, no acute distress Lungs: Normal effort Neuro: Alert, CN III -VII, XI, XII grossly intact except obvious right facial droop, left upper extremity strength 5/5, left lower extremity strength 3/5, right upper extremity strength 1/5, right lower extremity strength 1/[address] scan of head Assessment 1. Recent stroke - CT scan of head shows no new acute findings. Continue neurochecks q1 until evaluated by rounding provider. Thank you for including Ceasar Cueva in the patients care. This service is available for further assistance as requested by your care team by calling [phone]. Exam Const: Vital Signs, click to edit/add: Vital Signs - 24 hr 03/10/22 07:00 03/10/22 07:00 03/10/22 07:00 Temperature 98.1 F Pulse Rate 79 Pulse Rate [Left P ulse Oximeter] 73 73 Respiratory Rate 18 18 Blood Pressure [Le ft Arm] 154/68 H Pulse Oximetry 96 Oxygen Delivery Me thod Room Air 03/10/22 11:00 03/10/22 15:00 03/10/22 15:00 Temperature 98.2 F 98.4 F Pulse Rate Pulse Rate [Left P ulse Oximeter] 73 79 79 Respiratory Rate 18 18 18 Blood Pressure [Le ft Arm] 185/78 H 164/74 H Pulse Oximetry 96 95 Oxygen Delivery Me thod Room Air Room Air 03/10/22 15:00 03/10/22 19:00 03/10/22 23:00 Temperature 97.8 F Pulse Rate 76 73 Pulse Rate [Left P ulse Oximeter] 82 Respiratory Rate 18 Blood Pressure [Le ft Arm] 146/72 H Pulse Oximetry 94 Oxygen Delivery Me thod Room Air 03/10/22 23:00 03/10/22 23:00 03/11/22 03:00 Temperature 97.8 F 98.1 F Pulse Rate Pulse Rate [Left P ulse Oximeter] 73 73 84 Respiratory Rate 18 18 18 Blood Pressure [Le ft Arm] 148/66 H 153/70 H Pulse Oximetry 94 93 Oxygen Delivery Me thod Room Air Room Air Labs Labs: Laboratory Results - last 24 hr 03/10/22 03/10/22 03/10/22 05:47 05:47 05:47 WBC 6.16 RBC 3.90 L Hgb 11.2 L Hct 34.0 MCV 87 MCH 29 MCHC 33 RDW Coeff of Bertin 11.8 Plt Count 201 Neut % (Auto) 55.6 Lymph % (Auto) 33.8 [place] % (Auto) 6.7 Eos % (Auto) 3.4 Baso % (Auto) 0.5 Neut # (Auto) 3.43 Lymph # (Auto) 2.08 [place] # (Auto) 0.40 Eos # (Auto) 0.21 Baso # (Auto) 0.03 Abs Immat Gran (auto) 0.00 Hemoglobin A1c 7.18 H Triglycerides 111 Cholesterol 248 H LDL Cholesterol, Calc 180 H HDL Cholesterol 46 L
--- NOTE | 2022-03-11 03:48 | CRLHL7_ITS ---
For Patients: As a result of the Century Cures Act, medical imaging exams and procedure reports are released immediately into your electronic medical record. You may view this report before your referring provider. If you have questions, please contact your health care provider. INDICATION: new onset right sided weakness COMPARISON: MRI 03/09/2022 TECHNIQUE: A CT volumetric acquisition was performed of the brain without IV contrast. Please note that all CT scans at this facility use dose modulation, iterative reconstruction, and/or weight-based dosing when appropriate to reduce radiation dose to as low as reasonably achievable. FINDINGS: Hypodensity in the left aubrie noted. This correlates with the MRI. No hemorrhage. No hydrocephalus. Chronic white matter changes. No midline shift. IMPRESSION: Left pontine infarct without hemorrhage. No change compared to the MRI. Please note that all CT scans at this facility use dose modulation, iterative reconstruction, and/or weight-based dosing when appropriate to reduce radiation dose to as low as reasonably achievable. Dictated by Irving Rdz MD @ 03/11/2022 5:00:51 AM (Electronically Signed)
--- NOTE | 2022-03-11 04:26 | PC.NURSE ---
Addendum entered by Yoanna Cox RN 03/11/22 04:46: Updated pt.'s daughter Deb of event, informed her that we will update her of pt. status once CT head results are back. Called to clarify information given to daughter by patient, as pt. informed daughter, my whole left side is gone now. Informed Deb that pt.'s LUE is strong and unaffected, but LLE, RUE, and RLE are weaker than yesterday, and gave correct information about pt. status. Deb stated to call her back with results. Original Note: At 0310, noticed pt.'s RT sided facial droop more prominent. During neuro assessment, pt. unable to lift RT arm or leg, RUE and RLE strengths 1/5, changed from previous strengths of 4/5 each. Pt.'s LUE 5/5, LLE 2/5. Pt. unable to grasp radio news writer's hand with RT hand or perform foot press with RT foot. Ceasar Reed notified, performed e-assessment on pt. and found same results, ordered for STAT CT head w/o contrast. Pt. went for CT at 0408, and upon transfer to CT room, had a small episode of emesis. Pt. tolerated CT Head well, returned to unit room at 0418. Awaiting results, will notify Dr. Reed when results are updated. Pt.'s VSS on RA, no further episodes of N/V noted at this time. Will perform neuro checks on pt. q1h until 0700 per order, and re-evaluate further plan of care once CT scan results are back.
[2022-03-11 06:37] LABS: Hemoglobin* 11.5 gm/dL (12.0-16.0); Immature Reticulocyte Fraction 4.7 % (3.0-15.9); Reticulocyte Percent 1.1 % (0.5-2.0); Reticulocytes Absolute 0.05 # (0.03-0.08)
[2022-03-11 06:53] LABS: Iron* 82 ug/dL (37-170)
[2022-03-11 07:00] VITALS: BP 162/87; PULSE 79; RESP 16; RESP 18; TEMP 36.8; O2SAT 93
[2022-03-11 07:02] LABS: Percent Iron Saturation 34 % (20-50); Total Iron Binding Capacity 238 ug/dL (265-497)
[2022-03-11] MEDS: GLIMEPIRIDE 1 MG TABLET 2 MG PO (08:28)
[2022-03-11] MEDS: ROSUVASTATIN CALCIUM 10 MG TABLET PO (08:36)
[2022-03-11] MEDS: ASPIRIN 81 MG TABLET EC PO (08:37)
[2022-03-11] MEDS: TRAMADOL HCL 50 MG TABLET PO ×4 (08:37→22:50)
[2022-03-11] MEDS: CLOPIDOGREL 75 MG TABLET PO (08:37)
[2022-03-11] MEDS: lisinopriL 10 MG TABLET PO (08:37)
[2022-03-11 11:00] VITALS: BP 143/73; PULSE 79; RESP 16; TEMP 36.6; O2SAT 94
--- NOTE | 2022-03-11 14:32 | PM.IMPN1 ---
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 Status: Acute (4) Hypertension: Status: Acute (5) Diabetes mellitus: Problem details: Historically poor control Status: Acute (6) Cognitive impairment: Status: Acute (7) Opioid abuse: Problem details: According to daughter and granddaughter the patient has been using excessive tramadol for some time Status: Acute (8) Decreased visual acuity: Problem details: History of chronic decreased vision, possibly acutely worse in the past couple days. Patient unaware of the cause. Previous cataract surgery. Status: Acute (9) Immobility: Problem details: Minimal ambulation with assist of 1 or holding onto nash and furniture. Status: Acute (10) Urinary incontinence: Status: Acute (11) Tinnitus: Problem details: Right greater than left Status: Acute (12) Diabetic foot ulcer: Problem details: Recently healed Status: Acute Plan 1. Reviewed with patient, , and son. 2. Answered their questions their satisfaction. 3. Continue to work with physical and occupational therapy. Will need to work with speech therapy as well. 4. Working with home health care social worker to establish a safe discharge disposition plan as well. 5. Continue with current supportive medication regimen, including aspirin, clopidogrel, statin. 6. Patient family agreeable to above stated plans and recommendations. Time Spent With Patient Total time spent: 40 minutes Subjective Time Seen by Provider: 10:00 Date Seen: 03/11/22 Interval history: 81-year-old woman status post left aubrie stroke now with residual right facial droop, right hand and arm apraxia. Has baseline cognitive impairment. Has baseline impaired mobility with gait instability. Fair amount of anxiety overnight of her right hand not functioning as well as previously. It is unclear if this was anxiety on her part or fluctuating neurologic function. Since then her right arm and hand apraxia seems to have stabilized. She is less anxious. CT scan of the head without contrast yesterday demonstrated no obvious hemorrhage. Patient tolerating increased activities today. She denies chest heaviness, pressure, tightness, or pain. Denies dyspnea at rest, paroxysmal nocturnal dyspnea, orthopnea. Denies syncope or near-syncope. Denies orthostasis. Denies nausea or vomiting. Denies palpitations or chest fluttering. Exam Narrative: Exam Narrative: Alert, oriented to self, place, and in part to time and situation. Less anxious today than she was yesterday. Lungs are clear to auscultation. Heart tones with regular rhythm. Telemetry demonstrates sinus rhythm. No CVA tenderness. Abdomen with active bowel sounds, soft, nontender. Extremities without edema. Skin is warm, dry, intact. Continues to have right hand and arm apraxia. Const: Vital Signs, click to edit/add: Vital Signs - 24 hr 03/10/22 15:00 03/10/22 15:00 03/10/22 15:00 Temperature 98.4 F Pulse Rate 76 Pulse Rate [Left P ulse Oximeter] 79 79 Respiratory Rate 18 18 Blood Pressure [Le ft Arm] 164/74 H Pulse Oximetry 95 Oxygen Delivery Me thod Room Air 03/10/22 19:00 03/10/22 23:00 03/10/22 23:00 Temperature 97.8 F Pulse Rate 73 Pulse Rate [Left P ulse Oximeter] 82 73 Respiratory Rate 18 18 Blood Pressure [Le ft Arm] 146/72 H Pulse Oximetry 94 Oxygen Delivery Me thod Room Air 03/10/22 23:00 03/11/22 03:00 03/11/22 07:00 Temperature 97.8 F 98.1 F Pulse Rate Pulse Rate [Left P ulse Oximeter] 73 84 Respiratory Rate 18 18 18 Blood Pressure [Le ft Arm] 148/66 H 153/70 H Pulse Oximetry 94 93 Oxygen Delivery Co thod Room Air Room Air 03/11/22 07:00 03/11/22 11:00 Temperature 98.2 F 97.8 F Pulse Rate Pulse Rate [Left P ulse Oximeter] 79 79 Respiratory Rate 16 16 Blood Pressure [Le ft Arm] 162/87 H 143/73 H Pulse Oximetry 93 94 Oxygen Delivery Me thod Room Air Room Air Documenting provider has reviewed patient's vital signs: yes Labs Labs: Laboratory Results - last 24 hr 03/11/22 03/11/22 05:51 05:51 Hgb 11.5 L Absolute Retic 0.05 Percent Retic 1.1 Immature Retic Fraction 4.7 Retic Hgb Equivalent 29.0 Iron 82 TIBC 238 L % Saturation [address] scan - head: Attestation: I have reviewed the pertinent imaging results. Radiologist's impression: Hypodensity in the left aubrie noted. This correlates with the MRI. No hemorrhage. No hydrocephalus. Chronic white matter changes. No midline shift. IMPRESSION: Left pontine infarct without hemorrhage. No change compared to the MRI.
[2022-03-11 15:00] VITALS: BP 162/66; PULSE 79; RESP 16; TEMP 36.6; O2SAT 96
[2022-03-11 19:00] VITALS: BP 137/55; PULSE 88; RESP 16; TEMP 36.9; O2SAT 96
--- NOTE | 2022-03-11 19:19 | PC.NURSE ---
Pt.alert and oriented. Pleasant and follows commands, VSS?on RA. Pt. slightly more weak on RT side than LT. Pt's dtr was concerned this AM that her mother might have had another stroke, MD notified and stated it is normal for symptoms to seem worse d/t inflammation present after a stroke. Pt.'s speech is slightly slurred but otherwise coherent and responds to questions appropriately. Speech therapy recommends eating softer foods. Pt. given Tramadol PRN for pain/dependency management and can be administered at 9AM, 1300, 1700 and 2100. Pt. was satisfied w/keeping on these times. Pt. is voiding w/o difficulty with A1/walker and gait belt.
[2022-03-11] MEDS: ENOXAPARIN 40 MG/0.4 ML INJ SUBCUT (22:50)
[2022-03-11 23:00] VITALS: BP 149/59; PULSE 83; RESP 16; TEMP 36.6; O2SAT 96
[2022-03-12 02:28] VITALS: BP 153/59; PULSE 77; RESP 16; TEMP 36.6; O2SAT 95
[2022-03-12 07:00] VITALS: BP 145/100; PULSE 71; PULSE 77; RESP 16; RESP 20; O2SAT 97
[2022-03-12] MEDS: CLOPIDOGREL 75 MG TABLET PO (09:36)
[2022-03-12] MEDS: TRAMADOL HCL 50 MG TABLET PO ×4 (09:36→22:31)
[2022-03-12] MEDS: GLIMEPIRIDE 1 MG TABLET 2 MG PO (09:36)
[2022-03-12] MEDS: lisinopriL 10 MG TABLET PO (09:37)
[2022-03-12] MEDS: ASPIRIN 81 MG TABLET EC PO (09:37)
[2022-03-12] MEDS: ROSUVASTATIN CALCIUM 10 MG TABLET PO (09:37)
[2022-03-12 11:00] VITALS: BP 141/61; PULSE 80; RESP 20; TEMP 36.8; O2SAT 95
--- NOTE | 2022-03-12 13:36 | CRLHL7_ITS ---
For Patients: As a result of the Century Cures Act, medical imaging exams and procedure reports are released immediately into your electronic medical record. You may view this report before your referring provider. If you have questions, please contact your health care provider. Indication: F/U STROKE NEUROLOGIC Deterioration Comparison: 03/11/2022 Technique: Multiple sequential axial images from the foramen magnum to the vertex were obtained without IV contrast. Findings: No acute intracranial hemorrhage. Sulci and ventricles are normal in caliber. No mass effect or midline shift. Mild patchy periventricular areas of white matter hypoattenuation. Davila-white matter differentiation appears preserved including within the insular cortex bilaterally. Hypodensity in the known location of the left pontine infarct appears similar. Impression: No acute intracranial hemorrhage. No significant mass effect. Please note that all CT scans at this facility use dose modulation, iterative reconstruction, and/or weight-based dosing when appropriate to reduce radiation dose to as low as reasonably achievable. Dictated by Suman Lei MD @ 03/12/2022 4:49:57 PM (Electronically Signed)
--- NOTE | 2022-03-12 14:32 | P.IMPN_ITS ---
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 Status: Acute (4) Hypertension: Status: Acute (5) Diabetes mellitus: Problem details: Historically poor control Status: Acute (6) Cognitive impairment: Status: Acute (7) Opioid abuse: Problem details: According to daughter and granddaughter the patient has been using excessive tramadol for some time Status: Acute (8) Decreased visual acuity: Problem details: History of chronic decreased vision, possibly acutely worse in the past couple days. Patient unaware of the cause. Previous cataract surgery. Status: Acute (9) Immobility: Problem details: Minimal ambulation with assist of 1 or holding onto nash and furniture. Status: Acute (10) Urinary incontinence: Status: Acute (11) Tinnitus: Problem details: Right greater than left Status: Acute (12) Diabetic foot ulcer: Problem details: Recently healed Status: Acute Plan 1. Given the continued fluctuating nature of her right hemiparesis I will be rechecking a CT scan to rule out hemorrhagic transformation. I am concerned about the possibility of early neurologic deterioration. Most likely this rep resents bradford stroke edema. May represent extension of infarction in to adjacent areas of the brain as well. 2. Reviewed my impression with the patient and her daughter and granddaughter. Answered their questions. They are agreeable. 3. Continue to work with physical and occupational therapy 4. Continue with efforts to establish a safe discharge disposition plan 5. Will hold her antihypertensive for now. Time Spent With Patient Total time spent: 40 minutes Subjective Time Seen by Provider: 09:00 Date Seen: 03/12/22 Interval history: Hospital day 4. 81-year-old woman status post left aubrie stroke now with residual right facial droop, right hand and arm apraxia. Has baseline cognitive impairment. Has baseline impaired mobility with gait instability. Right facial droop, right hand and right leg weakness improved throughout the day yesterday. This morning she woke up with worsening right-sided weakness once again. Denies headache or change in vision. Over the course of the day her right hand and leg weakness higher slowly improving again. She denies chest heaviness, pressure, tightness, or pain. Denies dyspnea at rest, paroxysmal nocturnal dyspnea, orthopnea. Denies syncope or near-syncope. Denies orthostasis. Denies nausea or vomiting. Denies palpitations or chest fluttering. We have seen no evidence of seizures. Exam Narrative: Exam Narrative: No acute distress. Appears comfortable. Is anxious. Mood and affect are congruent. Alert, oriented to self, place, in part to time, in part to situation. Neck is supple. Midline trachea. No jugular venous distention, hepatojugular reflux, or carotid bruits. Lungs are clear to auscultation without wheezing, rhonchi, or rales. Chest wall excursions are full. Heart tones with regular rhythm, normal S1-S2. Abdomen with active bowel sounds, soft, nontender. Extremities without edema. More dense right hemiparesis today compared to yesterday upper extremity more so than lower extremity. Const: Vital Signs, click to edit/add: Vital Signs - 24 hr 03/11/22 15:00 03/11/22 15:00 03/11/22 19:00 Temperature 97.8 F 98.5 F Pulse Rate [Left P ulse Oximeter] 79 79 88 Respiratory Rate 16 16 16 Blood Pressure [Le ft Arm] 162/66 H 137/55 L Pulse Oximetry 96 96 Oxygen Delivery Me thod Room Air Room Air 03/11/22 23:00 03/11/22 23:00 03/12/22 02:28 Temperature 97.9 F 97.8 F Pulse Rate [Left P ulse Oximeter] 83 83 77 Respiratory Rate 16 16 16 Blood Pressure [Le ft Arm] 149/59 H 153/59 H Pulse Oximetry 96 95 Oxygen Delivery Me thod Room Air Room Air Documenting provider has reviewed patient's vital signs: yes
[2022-03-12 15:00] VITALS: BP 130/79; PULSE 85; RESP 20; O2SAT 95
--- NOTE | 2022-03-12 20:01 | PC.NURSE ---
shift [id number] pt this shift was sad in the morning r/t to worsening weakness. Was able to pronate R arm by lunch and able to flex at elbow by dinner. CT shows no change which pt was pleased to hear. Encouraged to continue to work on moving extremities and reconnecting the neuro pathways. Coughing noted during meals. Encouraged and educated on choosing softer foods, smaller bites, chewing really well, and taking small sips between bites to avoid aspiration. Transferred with EZ lift, tolerated well.
[2022-03-12 21:15] VITALS: BP 152/68; PULSE 82; RESP 20; TEMP 36.7; O2SAT 95
[2022-03-12] MEDS: ENOXAPARIN 40 MG/0.4 ML INJ SUBCUT (22:33)
[2022-03-12 23:00] VITALS: BP 134/49; PULSE 82; RESP 18; TEMP 36.7; O2SAT 93
[2022-03-13 03:00] VITALS: BP 147/61; PULSE 84; RESP 18; TEMP 36.3; O2SAT 92
--- NOTE | 2022-03-13 06:45 | PC.NURSE ---
END OF SHIFT NOTE: PT PLEASANT AND COOPERATIVE. PT WITH RIGHT SIDED FACIAL DROOP AND RIDE SIDE WEAKNESS TO UPPER AND LOWER EXTREMITIES. PT SPEECH SLURRED. PT REPORTED RIGHT EAR PAIN 6/10 THAT WAS RELIEVED WITH PRN TRAMADOL. BG 197; 2 UNITS S/S PER PROTOCOL. PT REFUSED REPOSITIONING AND OFFLOADING WITH PILLOWS DURING THE NIGHT. PT STATED ?I CAN?T SLEEP LIKE THAT. I SLEEP ON MY BACK.? PT DECLINED BRIEF CHANGE AND REPORTED SHE WOULD USE CALL LIGHT FOR ASSISTANCE.
[2022-03-13 07:00] VITALS: BP 145/63; PULSE 78; RESP 18; TEMP 36.3; O2SAT 96
[2022-03-13] MEDS: CLOPIDOGREL 75 MG TABLET PO (08:44)
[2022-03-13] MEDS: GLIMEPIRIDE 1 MG TABLET 2 MG PO (08:44)
[2022-03-13] MEDS: TRAMADOL HCL 50 MG TABLET PO ×2 (08:44→13:47)
[2022-03-13] MEDS: ASPIRIN 81 MG TABLET EC PO (08:44)
[2022-03-13] MEDS: ROSUVASTATIN CALCIUM 10 MG TABLET PO (08:44)
[2022-03-13 11:00] VITALS: BP 166/76; PULSE 80; RESP 18; TEMP 36.4; O2SAT 95
[2022-03-13 15:00] VITALS: BP 186/74; PULSE 84; RESP 18; TEMP 36.3; O2SAT 95
--- NOTE | 2022-03-13 16:59 | PC.NURSE ---
PATIENT DISCHARGED TO [facility] AT 1632 VIA EMS, DAUGHTER KAYKAY UPDATED WITH TRANSPORT TIME, PATIENT WITH RIGHT SIDED WEAKNESS, UP WITH CEILING LIFT OR 2 ASSIST PIVOT TO BSC/CHAIR, DECLINING PAIN OTHER THAN CHRONIC TINNITIS DECLINING MEDICATION NEED OTHER THAN TRAMADOL, PATIENT REPORTS PAIN BETTER WITH MEDICATION, SMALL BM THIS SHIFT, IV REMOVED CATHETER INTACT, NURSE TO NURSE REPORT GIVEN TO MAGDALENE AT [facility], ALL BELONGINGS SENT WITH PATIENT.
[2022-03-13 17:06] VITALS: PULSE 73; RESP 18; TEMP 36.3
--- NOTE | 2022-03-14 15:41 | PM.DS1 ---
DS: Providers Provider Time Seen by Provider: 09:00 Date Seen: 03/13/22 Date of admission: 03/09/22 21:35 Primary care physician: Beck Ferguson MD Admitting Clinician: Kodak Enciso MD Consults: 03/09/22 21:35 Consult to Physical Therapy [CONS] Routine Comment: Reason(s) for PT Consult:: Evaluate and Treat Any Restrictions?:: No Restrictions Consult to Instrumentation Fitter [CONS] Routine Comment: Reason for Consult:: Discharge Planning Needs 03/09/22 21:38 Consult to Occupational Therapy [CONS] Routine Comment: Reason(s) for OT Consult:: Evaluate and Treat Any Restrictions?:: No Restrictions 03/10/22 09:15 Consult to Speech Therapy [CONS] Routine Comment: Reason(s) for Speech Consult:: Speech/Swallowing Eval Comment: 3-4 days s/p left aubrie stroke with right facial droop, slurred speech. 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 (4) Hypertension: Status: Acute (5) Diabetes mellitus: Status: Acute Problem details: Historically poor control (6) Cognitive impairment: Status: Acute (7) Decreased visual acuity: Status: Acute Problem details: History of chronic decreased vision, possibly acutely worse in the past couple days. Patient unaware of the cause. Previous cataract surgery. (8) Opioid abuse: Status: Acute Problem details: According to daughter and granddaughter the patient has been using excessive tramadol for some time (9) Urinary incontinence: Status: Acute (10) Immobility: Status: Acute Problem details: Minimal ambulation with assist of 1 or holding onto nash and furniture. (11) Tinnitus: Status: Acute Problem details: Right greater than left (12) Diabetic foot ulcer: Status: Acute Problem details: Recently healed DS: Summary Hospital Course Hospital Course: 81-year-old right hand dominant woman presented with 2 day history of right facial droop, right hand and arm apraxia.? Has baseline cognitive impairment.? Has baseline impaired mobility with gait instability. Found to have a subacute left aubrie stroke with MRI/MRA scan on presentation to hospital. The severity of her right facial droop, right hand and right leg weakness have vacillated throughout her hospital stay.? Repeat CT scan of brain without contrast undertaken twice during hospitalization demonstrating no spontaneous hemorrhagic transformation or progression of stroke, thus her vacillating deficits suggest post-stroke edema. Started on clopidogrel and aspirin in hospital. Also started her on rosuvastatin in hospital. She has tolerated these. Warrants rehabilitation efforts in SNF for period of time with physical therapy, occupational therapy, and speech therapy. Status at Discharge Functional status at discharge: wheelchair bound Overall status at discharge: patient is not back to baseline Time Spent with Patient Time attestation: Total time spent providing and/or coordinating discharge services: Time spent: Greater than 30 minutes Quality: Stroke Reason for not prescribing antithrombotic at DC: Medical contraindication Exam Narrative: Exam Narrative: No acute distress.? Appears comfortable.? Is anxious.? Mood and affect are congruent. Alert, oriented to self, place, in part to time, in part to situation. Neck is supple.? Midline trachea.? No jugular venous distention, hepatojugular reflux, or carotid bruits.? Lungs are clear to auscultation without wheezing, rhonchi, or rales.? Chest wall excursions are full.? Heart tones with regular rhythm, normal S1-S2. Abdomen with active bowel sounds, soft, nontender.? Extremities without edema.? Dense right hemiparesis, upper extremity more so than lower extremity. Const: Vital Signs, click to edit/add: Vital Signs - 24 hr 03/13/22 17:06 Temperature 97.4 F L Pulse Rate 73 Respiratory Rate 18 Documenting provider has reviewed patient's vital signs: yes DS: Data Imaging MRI - head: Attestation: I have reviewed the pertinent imaging results. Radiologist's impression: MRI brain: 1. Small acute to early subacute infarction within the ventral left hemipons. 2. Moderate chronic microvascular changes. 3. Mild diffuse cerebral volume loss. MRA head/neck: 1. MRA head degraded by artifact. Suggested stenosis of the right greater than left supraclinoid internal carotid arteries and posterior cerebral artery proximal P2 segments. 2. Mild (less than 50 percent) proximal cervical internal carotid artery stenoses. CT scan - head: Attestation: I have reviewed the pertinent imaging results. My impression: Twice in the course of her hospitalization we checked a CT scan given her fluctuating clinical symptoms. Both times there was no hemorrhagic transformation. Radiologist's impression: Left pontine infarct without hemorrhage. No change compared to the MRI. Discharge Plan Discharge Disposition: Xfer Other Date of Admission: 03/09/22 21:35 Attending Provider on Discharge: Khanh Henry Primary Care Provider: Beck Ferguson Condition: Stable Anticipated Discharge Date/Time: 03/13/22 15:00 Discharge Medications: New clopidogrel 75 mg Tablet 75 mg PO DAILY Qty: 90 0RF Rx Instructions: Remain on this medication indefinitely, unless otherwise directed by your physician. aspirin 81 mg Tablet,Delayed Release (Dr/Ec) 81 mg PO DAILY Qty: 90 0RF Rx Instructions: Remain on this medication indefinitely, unless otherwise directed by your physician. rosuvastatin 10 mg Tablet 10 mg PO DAILY Qty: 90 0RF Rx Instructions: Remain on this medication indefinitely, unless otherwise directed by your physician. Continued lisinopril 10 mg tablet 10 mg PO DAILY Label Comments: TAKE 1 TABLET (10 MG) BY MOUTH DAILY glimepiride 2 mg tablet 2 mg PO DAILY Label Comments: TAKE 1 TABLET BY MOUTH DAILY. tramadol 50 mg tablet 50 mg PO QID PRN (Reason: pain) Qty: 30 0RF Label Comments: Take 1 tablet by mouth four times a day. Discharge Orders: Discharge Order (Routine); Ordered 03/13/22 Ordered By: Khanh Henry Activity Level: Activity as Tolerated and Use Walker Discharge Diet: Diabetic Follow Up Appointments: Beck Ferguson MD [Primary Care Provider] - Forms: [facility] Info Instructions Hospital Course: 81-year-old right hand dominant woman presented with 2 day history of right facial droop, right hand and arm apraxia.? Has baseline cognitive impairment.? Has baseline impaired mobility with gait instability. Found to have a subacute left aubrie stroke with MRI/MRA scan on presentation to hospital. The severity of her right facial droop, right hand and right leg weakness have vacillated throughout her hospital stay.? Repeat CT scan of brain without contrast undertaken twice during hospitalization demonstrating no spontaneous hemorrhagic transformation or progression of stroke, thus her vacillating deficits suggest post-stroke edema. Started on clopidogrel and aspirin in hospital. Also started her on rosuvastatin in hospital. She has tolerated these. Warrants rehabilitation efforts in SNF for period of time with physical therapy, occupational therapy, and speech therapy.
== END 2022-03-13 16:32 | DRG 64 ==
LOC: ED 20:40 → MEDSURG 20:47
PROVIDERS: Internal Medicine; Admitting Provider Family Medicine; Emergency Provider Family Medicine; PCP Family Medicine; Visit Provider Family Medicine
DX: I63.89 Other cerebral infarction (principal); G93.6 Cerebral edema; G81.91 Hemiplegia, unspecified affecting right dominant side; G81.01 Flaccid hemiplegia affecting right dominant side; R48.2 Apraxia; R29.810 Facial weakness; R53.1 Weakness; I69.328 Other speech and language deficits following cerebral infarction; G31.84 Mild cognitive impairment of uncertain or unknown etiology; I10 Essential (primary) hypertension; E11.621 Type 2 diabetes mellitus with foot ulcer; L97.509 Non-pressure chronic ulcer of other part of unspecified foot with unspecified severity; R26.89 Other abnormalities of gait and mobility; H93.13 Tinnitus, bilateral; H54.7 Unspecified visual loss; F11.10 Opioid abuse, uncomplicated; R32 Unspecified urinary incontinence; I45.10 Unspecified right bundle-branch block
CPT/HCPCS: 36415; 70450; 70544; 70549; 70553; 80053; 80061; 81001; 82947; 82962; 83036; 83540; 83550; 85018; 85025; 85045; 86140; 87635; 92610; 93005; 93306; 94761; 97110; 97112; 97116; 97161; 97165; 97530; 97535; 99284; 99285; G0378; A9270; A9575; J1650

== ENCOUNTER 2022-03-13 16:25 | Outpatient (CLI) | payer MEDICARE, SELFPAY | END 2022-03-13 16:26 | disposition home or self-care (01) | LOC: AMB 03-27 11:24 | PROVIDERS: PCP Family Medicine; Visit Provider Family Medicine | DX: R53.1 Weakness (principal) | CPT/HCPCS: A0425; A0428 ==